=== PATIENT | female | born 1995 | race African-American/Black ===

== ENCOUNTER 2016-06-17 02:53 | Emergency (ER) | payer MEDICAID ==
[2016-06-17] MEDS ORDERED: OXYCODONE-ACETAMINOPHEN 5-325 MG TABLET PO ONE (03:29)
[2016-06-17] MEDS ORDERED: IPRATROPIUM/ALBUTEROL 0.5-2.5 MG/3 ML AMPUL NEB ONE (03:30)
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
[2016-06-17] MEDS ORDERED: PREDNISONE 20 MG TABLET PO ONE (04:54)
[2016-06-17] MEDS ORDERED: ALBUTEROL SULFATE HFA (90 MCG/PUFF) 8 GM MDI (1 MDI/ER DISP) IH ONE (05:01)
[2016-06-17 07:20] VITALS: BP 104/67
== END 2016-06-17 07:00 | disposition home or self-care (01) ==
LOC: ER 02:53
DX: S06.0X1A Concussion with loss of consciousness of 30 minutes or less, initial encounter (principal); S16.1XXA Strain of muscle, fascia and tendon at neck level, initial encounter; J40 Bronchitis, not specified as acute or chronic; R51 Headache; R05 Cough; M54.5 Low back pain; M54.2 Cervicalgia; F17.200 Nicotine dependence, unspecified, uncomplicated; X58.XXXA Exposure to other specified factors, initial encounter
CPT/HCPCS: 94640; 99284; 71010; 70450; 72125; J7512; J3490; J7620

== ENCOUNTER 2016-10-02 16:25 | Emergency (ER) | payer MEDICAID ==
--- NOTE | 2016-10-02 17:00 | ER Document Report ---
ED Medical Screen (RME) - General Chief Complaint: Vaginal Bleeding Stated Complaint: VAGINAL BLEEDING Time Seen by Provider: 10/02/16 16:55 Mode of Arrival: Ambulatory Information source: Patient TRAVEL OUTSIDE OF THE [place] IN LAST 30 DAYS: No - HPI Patient complains to provider of: vaginal bleeding and cramping Onset: Yesterday - pt. is a approx 6-7 weeks along who developed vaginal bleeding and cramping earllier today - Related Data Allergies/Adverse Reactions: peanut [Peanut] Allergy (Verified 10/02/16 16:29) Swelling of Throat seafood Allergy (Intermediate, Uncoded 10/02/16 16:29) Swelling of Throat Past Medical History - General Last Menstrual Period: 08/18/16 - Social History Chew tobacco use (# tins/day): No Frequency of alcohol use: None Drug Abuse: None Renal/ Medical History: Denies: Hx Peritoneal Dialysis Past Surgical History: Reports: Hx Gynecologic Surgery - ovarian cyst removal - Immunizations Hx Diphtheria, Pertussis, Tetanus Vaccination: Yes Physical Exam - Vital signs Vitals: Temp Pulse Resp BP Pulse Ox 98.0 F 71 16 109/66 98 10/02/16 16:33 10/02/16 16:33 10/02/16 16:33 10/02/16 16:33 10/02/16 16:33 Course - Vital Signs Vital signs: Temp Pulse Resp BP Pulse Ox 98.0 F 71 16 109/66 98 10/02/16 16:33 10/02/16 16:33 10/02/16 16:33 10/02/16 16:33 10/02/16 16:33
[2016-10-02 17:18] LABS: ABSOLUTE EOSINOPHILS # (AUTO) 0.3 10^3/uL (0.0-0.6); ABSOLUTE LYMPHOCYTES (AUTO) 0.9 10^3/uL (0.5-4.7); ABSOLUTE MONOCYTES (AUTO) 0.3 10^3/uL (0.1-1.4); ABSOLUTE NEUT (AUTO) 2.8 10^3/uL (1.7-8.2); BASOPHILS % (AUTO) 0.6 % (0-2); HEMATOCRIT 40.6 % (36.0-47.0); HEMOGLOBIN 13.2 g/dL (12.0-15.5); LYMPHOCYTES % (AUTO) 21.2 % (13-45); MEAN CORPUSCULAR HEMOGLOBIN 28.1 pg (27.0-33.4); MEAN CORPUSCULAR HGB CONC 32.5 g/dL (32.0-36.0); MEAN CORPUSCULAR VOLUME 86 fl (80-97); MONOCYTES % (AUTO) 7.6 % (3-13); RED CELL DISTRIBUTION WIDTH 13.2 % (11.5-14.0); SEGMENTED NEUTROPHILS % (AUTO) 64.6 % (42-78); WHITE BLOOD COUNT 4.4 10^3/uL (4.0-10.5)
[2016-10-02 17:37] LABS: ALANINE AMINOTRANSFERASE 23 U/L (9-52); ALBUMIN 4.4 g/dL (3.5-5.0); ALKALINE PHOSPHATASE 71 U/L (38-126); ANION GAP 10 (5-19); ASPARTATE AMINO TRANSFERASE 20 U/L (14-36); BILIRUBIN,DIRECT 0.2 mg/dL (0.0-0.4); BLOOD UREA NITROGEN 13 mg/dL (7-20); CALCIUM 9.7 mg/dL (8.4-10.2); CARBON DIOXIDE 27 mmol/L (22-30); CHLORIDE 103 mmol/L (98-107); CREATININE RESULT 1.07 mg/dL (0.52-1.25); GLUCOSE 103 mg/dL (75-110); POTASSIUM 4.3 mmol/L (3.6-5.0); SODIUM 140.3 mmol/L (137-145); TOTAL PROTEIN 7.6 g/dL (6.3-8.2)
[2016-10-02 17:39] LABS: AMORPHOUS SEDIMENT,URINE TRACE /HPF; APPEARANCE,URINE CLOUDY; BILIRUBIN,URINE NEGATIVE (NEGATIVE); GLUCOSE, URINE NEGATIVE (NEGATIVE); KETONES,URINE NEGATIVE (NEGATIVE); LEUKOCYTE ESTERASE,URINE NEGATIVE (NEGATIVE); NITRITE,URINE NEGATIVE (NEGATIVE); PROTEIN,URINE NEGATIVE (NEGATIVE); URINE SPECIFIC GRAVITY 1.024
--- NOTE | 2016-10-02 18:21 | RADIOLOGY REPORT (SQ) ---
EXAM DESCRIPTION: U/S OB TRANSVAGINAL W/O DOP COMPLETED DATE/TIME: 10/02/2016 5:51 pm REASON FOR STUDY: vaginal bleeding and cramping COMPARISON: None. TECHNIQUE: Transvaginal static and realtime grayscale images acquired of the pelvis. Additional colten cted spectral and color Doppler images recorded. All images stored on PACs. BHCG: Not available. LIMITATIONS: None. FINDINGS: UTERUS: No visualized intrauterine . There is of a complex area in the lower [place] rine segment, 4.3 x 2.3 x 1.9 cm, possibly endometrial and possibly along the endometrium. Possibly a fibroid. RIGHT ADNEXA: Normal vascular flow. No adnexal free fluid. Complicated 4.3 x 5.3 x 4.5 cm cysts. LEFT ADNEXA: Normal ovary with normal vascular flow. No adnexal free fluid. Echogenic with hypoechoic areas. 3.1 x 3.1 x 1.9 cm. Likely dermoid. FREE FLUID: None. OTHER: No other significant finding. IMPRESSION: NO VISUALIZED INTRA- OR EXTRAUTERINE . Complex area air lower uterine segment question endometrial versus along the endometrium in the myometrium. Possibly fibroid. No fluid, bu t possibly AB in progress. bHCG LEVEL NOT AVAILABLE FOR CORRELATION WITH US FINDINGS. ECTOPIC CANNOT BE EXCLUDED. FOLLOW-UP ULTRASOUND AND SERIAL BHCG LEVELS STRONGLY RECOMMENDED TO ACCURATELY ASSESS STATU S. Complicated right ovarian cyst. Possible dermoid left ovary. COMMENT: Followup of asymptomatic indeterminate ovarian cysts detected by ultrasound in PREMENOPAUS [place] patients Cyst with findings suggestive of, but not classic for, hemorrhagic cyst, endometrioma or dermoid: *6-12 week followup US; if not a resolving hemorrhagic cyst, continued US or MRI followup; if endomet rioma or dermoid still not confirmed, consider surgical consultation Note: If cyst is clinically symptomatic or otherwise concerning, other followup may be warranted. Based on recommendations of the Society for Radiologists in Ultrasound Consensus Conference Statement 2010 on management of asymptomatic ovarian and other adnexal cysts imaged at ultrasound. TECHNICAL DOCUMENTATION: JOB ID: [id number] [employer]- All Rights Reserved
[2016-10-02] MEDS ORDERED: IBUPROFEN 600 MG TABLET PO ONE (19:25)
--- NOTE | 2016-10-02 19:41 | ER Document Report ---
ED General - General Chief Complaint: Vaginal Bleeding Stated Complaint: VAGINAL BLEEDING Time Seen by Provider: 10/02/16 16:55 Mode of Arrival: Ambulatory Notes: 21-year-old female 1 at approximately 6 weeks by dates presents with crampy abdominal pain and spotting. No fever. Symptoms are constant. Symptoms been present for about 5 days. She has a known ovarian cyst and was getting that checked when she found out she was . Denies fever chills or urinary symptoms. Workup ordered at triage includes labs and ultrasound. TRAVEL OUTSIDE OF THE [place] IN LAST 30 DAYS: No - Related Data Allergies/Adverse Reactions: peanut [Peanut] Allergy (Verified 10/02/16 16:29) Swelling of Throat seafood Allergy (Intermediate, Uncoded 10/02/16 16:29) Swelling of Throat Past Medical History - General Information source: Patient Last Menstrual Period: 08/18/16 - Social History Smoking Status: Current Some Day Smoker Chew tobacco use (# tins/day): No Frequency of alcohol use: None Drug Abuse: None Family History: Reviewed & Not Pertinent Renal/ Medical History: Denies: Hx Peritoneal Dialysis Past Surgical History: Reports: Hx Gynecologic Surgery - ovarian cyst removal - Immunizations Hx Diphtheria, Pertussis, Tetanus Vaccination: Yes Review of Systems - Review of Systems Notes: REVIEW OF SYSTEMS GEN: Denies fever, chills, weight loss ENT: Denies sore throat, nasal discharge, ear pain EYES: Denies blurry vision, eye pain, discharge CV: Denies chest pain, palpitations, edema RESP: Denies cough, shortness of breath, wheezing GI: Abdominal cavity, no vaginal discharge MSK: Denies joint pain/swelling, edema, SKIN: Denies rash, skin lesions LYMPH: Denies swollen glands/lymph nodes NEURO: Denies headache, focal weakness or numbness, dizziness PSYCH: Denies depression, suicidal or homicidal ideation PHYSICAL EXAMINATION General: No acute distress, well-nourished Head: Atraumatic, normocephalic ENT: Mouth normal, oropharynx moist, no exudates or tonsillar enlargement Eyes: Conjunctiva normal, pupils equal, lids normal Neck: No JVD, supple, no guarding CVS: Normal rate, regular rhythm, no murmurs Resp: No resp distress, equal and normal breath sounds bilaterally GI: Nondistended, soft, no tenderness to palpation, no rebound or guarding Ext: No deformities, no edema, normal range of motion in upper and lower ext Back: No CVA or midline TTP Skin: No rash, warm Lymphatic: No lymphadeopathy noted Neuro: Awake, alert. Face symmetric. GCS 15. Physical Exam - Vital signs Vitals: Temp Pulse Resp BP Pulse Ox 98.0 F 71 16 109/66 98 10/02/16 16:33 10/02/16 16:33 10/02/16 16:33 10/02/16 16:33 10/02/16 16:33 Course - Re-evaluation Re-evalutation: 10/02/16 19:26 Likely first trimester patient presents with crampy lower abdominal pain and bleeding. Her ultrasound triage shows no intrauterine gestation. Her beta hCG is nearly 0 likely reflecting a miscarriage in progress. Ectopic is still on the list but much less likely. I will get an Rh type, but she will be followed up in 48 hours for repeat beta hCG. 10/02/16 21:35 Rh+. Arranged 48 hour follow-up with Dr. Urban by phone. Motrin symptoms. - Vital Signs Vital signs: Temp Pulse Resp BP Pulse Ox 97.4 F 62 14 104/71 92 10/02/16 18:21 10/02/16 18:21 10/02/16 18:21 10/02/16 18:21 10/02/16 18:21 - Laboratory Result Diagrams: 10/02/16 17:03 10/02/16 17:03 Laboratory results interpreted by me: 10/02/16 17:03 Urine Blood MODERATE H Urine Urobilinogen 4.0 H - Diagnostic Test Radiology reviewed: Image reviewed, Reports reviewed Discharge - Discharge Clinical Impression: Spontaneous Condition: Good Disposition: HOME, SELF-CARE Instructions: Miscarriage ([facility]) Referrals: JUAN BIRCH MD [ACTIVE STAFF] - 10/04/16 (48 hours for rpt labs)
[2016-10-02 21:55] VITALS: BP 101/72
== END 2016-10-02 21:55 | disposition home or self-care (01) ==
LOC: ER 16:25
DX: O03.9 Complete or unspecified spontaneous abortion without complication (principal); O34.81 Maternal care for other abnormalities of pelvic organs, first trimester; O99.331 Smoking (tobacco) complicating pregnancy, first trimester; F17.210 Nicotine dependence, cigarettes, uncomplicated; N83.201 Unspecified ovarian cyst, right side; Z91.010 Allergy to peanuts; Z91.013 Allergy to seafood; Z3A.01 Less than 8 weeks gestation of pregnancy
CPT/HCPCS: 99284; 86900; 86901; 36415; 84702; 85025; 80053; 81001; 76817; J3490

== ENCOUNTER 2016-12-02 10:37 | Emergency (ER) | payer MEDICAID ==
[2016-12-02 10:45] VITALS: BP 106/68
[2016-12-02] MEDS ORDERED: OXYCODONE-ACETAMINOPHEN 5-325 MG TABLET PO ONE (10:57)
--- NOTE | 2016-12-02 10:58 | ER Document Report ---
HPI - HPI Patient complains to provider of: Abscess Onset: Other - 3 days Onset/Duration: Persistent Quality of pain: Sharp Pain Level: 4 Context: Patient complains of abscess to the left labia for the past 3 days. Patient denies any drainage no bleeding or discharge. Patient denies any fever. Patient states she has had a similar problem in the past. Associated Symptoms: Other - Abscess to the vaginal area. denies: Fever Exacerbated by: Movement Relieved by: Denies Similar symptoms previously: Yes Recently seen / treated by doctor: No - ROS ROS below otherwise negative: Yes Systems Reviewed and Negative: Yes All other systems reviewed and negative - CONSTITUTIONAL Constitutional: DENIES: Fever, Chills - GASTROINTESTINAL Gastrointestinal: DENIES: Abdominal Pain, Nausea - REPRODUCTIVE Reproductive: DENIES: : - DERM Skin Color: Normal Notes: Abscess Past Medical History - General Information source: Patient - Social History Smoking Status: Current Every Day Smoker Frequency of alcohol use: None Drug Abuse: None Occupation: Foodservice Family History: Reviewed & Not Pertinent Renal/ Medical History: Reports: Hx Ovarian Cysts. Denies: Hx Peritoneal Dialysis Skin Medical History: Reports Hx Eczema Past Surgical History: Reports: Hx Gynecologic Surgery - ovarian cyst removal - Immunizations Hx Diphtheria, Pertussis, Tetanus Vaccination: Yes Vertical Provider Document - CONSTITUTIONAL Agree With Documented VS: Yes Exam Limitations: No Limitations General Appearance: WD/WN, No Apparent Distress - INFECTION CONTROL TRAVEL OUTSIDE OF THE [place] IN LAST 30 DAYS: No - HEENT HEENT: Atraumatic, Normocephalic - NECK Neck: Normal Inspection, Supple - RESPIRATORY Respiratory: Breath Sounds Normal, No Respiratory Distress O2 Sat by Pulse Oximetry: 99 - CARDIOVASCULAR Cardiovascular: Regular Rate, Regular Rhythm - GI/ABDOMEN Gastrointestinal: Abdomen Soft, Abdomen Non-Tender, No Organomegaly - REPRODUCTIVE Female Genitalia: Abnormal Inspection - bartholin gland abscess - BACK Back: Normal Inspection - MUSCULOSKELETAL/EXTREMETIES Musculoskeletal/Extremeties: MAEW - NEURO Level of Consciousness: Awake, Alert, Appropriate Motor/Sensory: No Motor Deficit - DERM Integumentary: Warm, Dry, Abscess - left side bartholin gland Course - Vital Signs Vital signs: Temp Pulse Resp BP Pulse Ox 98.5 F 100 18 106/68 99 12/02/16 10:44 12/02/16 10:44 12/02/16 10:44 12/02/16 10:44 12/02/16 10:44 Procedures - Incision and Drainage Left Labia Type: Simple Anesthetic type: 1% Lidocaine Blade size: 11 I&D procedure: Betadine prep applied Incision Method: Incision made by scalpel Amount/type of drainage: large amount of purulent drainage Female anatomy: 1 - incision made at area of fluctuance Discharge - Discharge Clinical Impression: Bartholin's gland abscess Condition: Stable Disposition: HOME, SELF-CARE Instructions: Abscess ([facility]), Oral Narcotic Medication ([facility]), Post Incision and Drainage, Trimethoprim-Sulfa ([facility]) Additional Instructions: Return immediately for any new or worsening symptoms Followup with your primary care provider, call tomorrow to make a followup appointment Culture is pending, will call if you need any different treatment Prescriptions: Oxycodone HCl/Acetaminophen [Percocet 5-325 mg Tablet] 1 tab PO ASDIR PRN #12 tablet PRN Reason: Sulfamethoxazole/Trimethoprim [Bactrim Ds Tablet] 1 each PO BID #20 tablet Forms: Return to Work Referrals: [facility] [Provider Group] - Follow up as needed [facility] [Provider Group] - Follow up as needed
== END 2016-12-02 11:36 | disposition home or self-care (01) ==
LOC: ER 10:37
PROC: 0U9L0ZZ Drainage of Vestibular Gland, Open Approach (ICD-10-PCS; principal; 2016-12-02)
DX: N75.1 Abscess of Bartholin's gland (principal); F17.200 Nicotine dependence, unspecified, uncomplicated
CPT/HCPCS: 87070; 87075; 87077; 87205; 99283

== ENCOUNTER 2016-12-03 06:27 | Emergency (ER) | payer OTHER, MEDICAID ==
[2016-12-03] MEDS ORDERED: NORMAL SALINE 1000 ML 1,000 ML IV ONE ×2 (06:29)
[2016-12-03 06:41] LABS: ABSOLUTE EOSINOPHILS # (AUTO) 0.1 10^3/uL (0.0-0.6); ABSOLUTE LYMPHOCYTES (AUTO) 1.7 10^3/uL (0.5-4.7); ABSOLUTE MONOCYTES (AUTO) 0.4 10^3/uL (0.1-1.4); ABSOLUTE NEUT (AUTO) 4.7 10^3/uL (1.7-8.2); BASOPHILS % (AUTO) 0.5 % (0-2); EOSINOPHILS % (AUTO) 1.7 % (0-6); HEMATOCRIT 36.8 % (36.0-47.0); HEMOGLOBIN 12.3 g/dL (12.0-15.5); HGB HCT DIFFERENCE 0.1; LYMPHOCYTES % (AUTO) 23.9 % (13-45); MEAN CORPUSCULAR HEMOGLOBIN 28.3 pg (27.0-33.4); MEAN CORPUSCULAR HGB CONC 33.4 g/dL (32.0-36.0); MEAN CORPUSCULAR VOLUME 85 fl (80-97); MONOCYTES % (AUTO) 5.9 % (3-13); RED BLOOD COUNT 4.34 10^6/uL (3.72-5.28); RED CELL DISTRIBUTION WIDTH 12.9 % (11.5-14.0)
[2016-12-03 06:56] LABS: ALANINE AMINOTRANSFERASE 59 U/L (9-52); ALBUMIN 4.1 g/dL (3.5-5.0); ALCOHOL 145 mg/dL (NONE DETECTED); ALKALINE PHOSPHATASE 71 U/L (38-126); ANION GAP 14 (5-19); ASPARTATE AMINO TRANSFERASE 77 U/L (14-36); BILIRUBIN,DIRECT 0.4 mg/dL (0.0-0.4); BILIRUBIN,TOTAL 0.9 mg/dL (0.2-1.3); BLOOD UREA NITROGEN 10 mg/dL (7-20); CALCIUM 9.1 mg/dL (8.4-10.2); CARBON DIOXIDE 23 mmol/L (22-30); CHLORIDE 107 mmol/L (98-107); CREATININE RESULT 0.95 mg/dL (0.52-1.25); GLUCOSE 113 mg/dL (75-110); LIPASE 66.2 U/L (23-300); POTASSIUM 4.1 mmol/L (3.6-5.0); SODIUM 144.4 mmol/L (137-145); TOTAL PROTEIN 7.5 g/dL (6.3-8.2)
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
--- NOTE | 2016-12-03 08:34 | EKG REPORT ---
SEVERITY:- OTHERWISE NORMAL ECG - SINUS TACHYCARDIA : Confirmed by: Mohit Zuniga MD 03-Dec-2016 08:33:46
[2016-12-03] MEDS ORDERED: ONDANSETRON HCL INJ/PF 4 MG/2 ML SDV IV ONE (08:37)
[2016-12-03] MEDS ORDERED: ACETAMINOPHEN 325 MG TABLET PO ONE (11:53)
[2016-12-03] MEDS ORDERED: ONDANSETRON ODT 4 MG TAB (6 TAB/DSPK) PO PRN (13:07)
[2016-12-03 13:08] VITALS: BP 116/74
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
== END 2016-12-03 13:18 | disposition home or self-care (01) ==
LOC: ER 06:27
DX: S02.2XXA Fracture of nasal bones, initial encounter for closed fracture (principal); F10.920 Alcohol use, unspecified with intoxication, uncomplicated; V47.6XXA Car passenger injured in collision with fixed or stationary object in traffic accident, initial encounter; Z91.010 Allergy to peanuts; Z91.013 Allergy to seafood
CPT/HCPCS: 93005; 99285; 96361; 96374; 36415; 80307; 83690; 84703; 85025; 80053; 70450; 70486; 71260; 72125; 74177; 93010; J2405; J7030

== ENCOUNTER 2016-12-04 19:20 | Emergency (ER) | payer OTHER, MEDICAID ==
[2016-12-04] MEDS ORDERED: ACETAMINOPHEN 325 MG TABLET PO ONE (20:23)
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
--- NOTE | 2016-12-04 21:03 | RADIOLOGY REPORT (SQ) ---
EXAM DESCRIPTION: ANKLE RIGHT COMPLETE COMPLETED DATE/TIME: 12/04/2016 8:21 pm REASON FOR STUDY: right ankle injury COMPARISON: None. NUMBER OF VIEWS: Three views. TECHNIQUE: AP, lateral, and oblique radiographic images acquired of the right ankle. LIMITATIONS: None. FINDINGS: MINERALIZATION: Normal. BONES: No acute fracture or dislocation. No worrisome bone lesions. JOINTS: No effusions. SOFT TISSUES: Soft tissue swelling is identified. OTHER: No other significant finding. IMPRESSION: Soft tissue swelling without evidence for fracture. TECHNICAL DOCUMENTATION: JOB ID: [id number] [employer]- All Rights Reserved
[2016-12-04 21:21] VITALS: BP 115/58
== END 2016-12-04 21:20 | disposition home or self-care (01) ==
LOC: ER 19:20
DX: M25.571 Pain in right ankle and joints of right foot (principal)
CPT/HCPCS: 99283

== ENCOUNTER 2016-12-11 10:48 | Emergency (ER) | payer MEDICAID, OTHER ==
--- NOTE | 2016-12-11 12:41 | ER Document Report ---
ED General - General Chief Complaint: Abdominal Pain Stated Complaint: ABDOMINAL PAIN Time Seen by Provider: 12/11/16 12:27 Mode of Arrival: Ambulatory Information source: Patient Notes: 21-year-old female who is been here now for times in a week presents with complaints of thick white vaginal discharge. Patient notes symptoms have been ongoing for a week denies any fevers or chills denies any previous STD history. Patient is sexually active TRAVEL OUTSIDE OF THE [place] IN LAST 30 DAYS: No - HPI Onset: Last week Onset/Duration: Persistent Quality of pain: Achy Severity: Mild Pain Level: 1 Associated symptoms: Other Exacerbated by: Denies Relieved by: Denies Similar symptoms previously: Yes Recently seen / treated by doctor: Yes - Related Data Allergies/Adverse Reactions: peanut [Peanut] Allergy (Verified 12/11/16 10:54) Swelling of Throat seafood Allergy (Intermediate, Uncoded 12/11/16 10:54) Swelling of Throat Past Medical History - Social History Smoking Status: Current Every Day Smoker Cigarette use (# per day): Yes Chew tobacco use (# tins/day): No Smoking Education Provided: No Frequency of alcohol use: Occasional Drug Abuse: None Family History: Reviewed & Not Pertinent Patient has suicidal ideation: No Renal/ Medical History: Reports: Hx Ovarian Cysts. Denies: Hx Peritoneal Dialysis Skin Medical History: Reports Hx Eczema Past Surgical History: Reports: Hx Gynecologic Surgery - ovarian cyst removal - Immunizations Hx Diphtheria, Pertussis, Tetanus Vaccination: Yes Review of Systems - Review of Systems Notes: REVIEW OF SYSTEMS: CONSTITUTIONAL : Denies fever, chills, or sweats. Denies recent illness. EENT: Denies eye, ear, throat, or mouth pain or symptoms. Denies nasal or sinus congestion or discharge. Denies throat, tongue, or mouth swelling or difficulty swallowing. CARDIOVASCULAR: Denies chest pain. Denies palpitations or racing or irregular heart beat. Denies ankle edema. RESPIRATORY: Denies cough, cold, or chest congestion. Denies shortness of breath, difficulty breathing, or wheezing. GASTROINTESTINAL: Denies abdominal pain or distention. Denies nausea, vomiting , or diarrhea. Denies blood in vomitus, stools, or per rectum. Denies black, tarry stools. Denies constipation. GENITOURINARY: Denies difficulty urinating, painful urination, burning, frequency, blood in urine, or discharge. FEMALE GENITOURINARY: Admits to thick vaginal discharge with odor MUSCULOSKELETAL: Denies back or neck pain or stiffness. Denies joint pain or swelling. SKIN: Denies rash, lesions or sores. HEMATOLOGIC : Denies easy bruising or bleeding. LYMPHATIC: Denies swollen, enlarged glands. NEUROLOGICAL: Denies confusion or altered mental status. Denies passing out or loss of consciousness. Denies dizziness or lightheadedness. Denies headache. Denies weakness or paralysis or loss of use of either side. Denies problems with gait or speech. Denies sensory loss, numbness, or tingling. Denies seizures. PSYCHIATRIC: Denies anxiety or stress. Denies depression, suicidal ideation, or homicidal ideation. ALL OTHER SYSTEMS REVIEWED AND NEGATIVE. PHYSICAL EXAMINATION: GENERAL: Well-appearing, well-nourished and in no acute distress. HEAD: Atraumatic, normocephalic. EYES: Pupils equal round and reactive to light, extraocular movements intact, conjunctiva are normal. ENT: Nares patent, oropharynx clear without exudates. Moist mucous membranes. NECK: Normal range of motion, supple without lymphadenopathy LUNGS: Breath sounds clear to auscultation bilaterally and equal. No wheezes rales or rhonchi. HEART: Regular rate and rhythm without murmurs ABDOMEN: Soft, nontender, nondistended abdomen. No guarding, no rebound. No masses appreciated. Female : Thick white discharge noted on vaginal examination no tenderness on palpation Musculoskeletal: Normal range of motion, no pitting or edema. No cyanosis. NEUROLOGICAL: Cranial nerves grossly intact. Normal speech, normal gait. Normal sensory, motor exams PSYCH: Normal mood, normal affect. SKIN: Warm, Dry, normal turgor, no rashes or lesions noted. Dictation was performed using [employer] voice recognition software Physical Exam - Vital signs Vitals: Temp Pulse Resp BP Pulse Ox 98.4 F 82 16 113/64 100 12/11/16 10:56 12/11/16 10:56 12/11/16 10:56 12/11/16 10:56 12/11/16 10:56 Course - Re-evaluation Re-evalutation: 12/11/16 13:03 Patient will be treated for gonorrhea chlamydia lab work otherwise pending 12/11/16 15:10 After performing a Medical Screening Examination, I estimate there is LOW risk for ACUTE APPENDICITIS, BOWEL OBSTRUCTION, ACUTE CHOLECYSTITIS, PERFORATED DIVERTICULITIS, INCARCERATED HERNIA, PANCREATITIS, PELVIC INFLAMMATORY DISEASE, PERFORATED ULCER, ECTOPIC , or TUBO-OVARIAN ABSCESS, thus I consider the discharge disposition reasonable. Also, there is no evidence or peritonitis , sepsis, or toxicity. I have reevaluated this patient multiple times and no significant life threatening changes are noted. The patient and I have discussed the diagnosis and risks, and we agree with discharging home with close follow-up with the understanding that symptoms and presentations can change. We also discussed returning to the Emergency Department immediately if new or worsening symptoms occur. We have discussed the symptoms which are most concerning (e.g., bloody stool, fever, changing or worsening pain, vomiting) that necessitate immediate return. - Vital Signs Vital signs: Temp Pulse Resp BP Pulse Ox 98.1 F 72 14 102/64 100 12/11/16 13:37 12/11/16 13:37 12/11/16 13:37 12/11/16 13:37 12/11/16 13:37 - Laboratory Laboratory results interpreted by me: 12/11/16 12/11/16 11:40 13:01 Urine Urobilinogen 4.0 H Ur Leukocyte Esterase MODERATE H Chlamydia DNA (PCR) DETECTED H Discharge - Discharge Clinical Impression: Vaginal discharge, Concern about STD in female without diagnosis Condition: Stable Disposition: HOME, SELF-CARE Additional Instructions: Please follow-up with the health department for further testing positive results will be called to you Referrals: HEALTH DEPT,[facility] [NO LOCAL MD] - Follow up tomorrow
[2016-12-11] MEDS ORDERED: CEFTRIAXONE INJ 250 MG VIAL IM ONE (12:56)
[2016-12-11] MEDS ORDERED: AZITHROMYCIN 250 MG TABLET PO ONE (12:56)
[2016-12-11] MEDS ORDERED: LIDOCAINE 1% INJ-PF (10 MG/ML) 30 ML SDV INFIL ONE (12:56)
[2016-12-11 13:31] LABS: APPEARANCE,URINE CLOUDY; BILIRUBIN,URINE NEGATIVE (NEGATIVE); GLUCOSE, URINE NEGATIVE (NEGATIVE); KETONES,URINE NEGATIVE (NEGATIVE); LEUKOCYTE ESTERASE,URINE MODERATE (NEGATIVE); NITRITE,URINE NEGATIVE (NEGATIVE); PROTEIN,URINE NEGATIVE (NEGATIVE)
[2016-12-11 13:38] VITALS: BP 102/64
[2016-12-11 14:43] LABS: CHLAM PCR DETECTED (NOT DETECT)
== END 2016-12-11 13:37 | disposition home or self-care (01) ==
LOC: ER 10:48
DX: A56.8 Sexually transmitted chlamydial infection of other sites (principal); J02.8 Acute pharyngitis due to other specified organisms; B97.89 Other viral agents as the cause of diseases classified elsewhere; F17.210 Nicotine dependence, cigarettes, uncomplicated; Z91.010 Allergy to peanuts; Z91.013 Allergy to seafood
CPT/HCPCS: 99284; 96372; 87210; 81025; 81001; 87491; 87591; Q0144; J0696

== ENCOUNTER 2018-05-27 11:31 | Emergency (ER) | payer MEDICAID, OTHER ==
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
[2018-05-27 13:21] LABS: ABSOLUTE EOSINOPHILS # (AUTO) 0.1 10^3/uL (0.0-0.6); ABSOLUTE LYMPHOCYTES (AUTO) 0.5 10^3/uL (0.5-4.7); ABSOLUTE MONOCYTES (AUTO) 0.4 10^3/uL (0.1-1.4); ABSOLUTE NEUT (AUTO) 4.7 10^3/uL (1.7-8.2); BASOPHILS % (AUTO) 0.2 % (0-2); EOSINOPHILS % (AUTO) 1.1 % (0-6); HEMATOCRIT 38.2 % (36.0-47.0); HEMOGLOBIN 12.7 g/dL (12.0-15.5); LYMPHOCYTES % (AUTO) 8.7 % (13-45); MEAN CORPUSCULAR HEMOGLOBIN 28.5 pg (27.0-33.4); MEAN CORPUSCULAR HGB CONC 33.2 g/dL (32.0-36.0); MEAN CORPUSCULAR VOLUME 86 fl (80-97); MONOCYTES % (AUTO) 7.6 % (3-13); PLATELET COUNT 183 10^3/uL (150-450); RED BLOOD COUNT 4.45 10^6/uL (3.72-5.28); RED CELL DISTRIBUTION WIDTH 14.5 % (11.5-14.0); SEGMENTED NEUTROPHILS % (AUTO) 82.4 % (42-78); TOTAL CELLS COUNTED % (AUTO) 100 %; WHITE BLOOD COUNT 5.8 10^3/uL (4.0-10.5)
--- NOTE | 2018-05-27 14:29 | RADIOLOGY REPORT (SQ) ---
EXAM DESCRIPTION: U/S NON OB PEL TV W/DOPPLER COMPLETED DATE/TIME: 05/27/2018 2:13 pm REASON FOR STUDY: pain h/o one month ago COMPARISON: None. TECHNIQUE: Dynamic and static grayscale images acquired of the pelvis via transvaginal approach and recorded on PACS. Additional selected color Doppler and spectral images recorded. LIMITATIONS: None. FINDINGS: UTERUS: Contour normal. No mass. ENDOMETRIAL STRIPE: There is thickening and slightly irregularity in the apex of the endometrial [place] l. CERVIX: 3.3 cm. No nabothian cysts. RIGHT OVARY AND DOPPLER: Normal size. No worrisome masses. Normal arterial vascular flow without evid ence for torsion. LEFT OVARY AND DOPPLER: Normal size. No worrisome masses. Normal arterial vascular flow without evide nce for torsion. 3.5 x 2.7 x 2.1 cm complex mass with shadowing calcifications. FREE FLUID: None noted. OTHER: No other significant finding. MEASUREMENTS: UTERUS: 8.3 x 7 x 5 cm. ENDOMETRIAL STRIPE: 16 mm. RIGHT OVARY: 2.5 x 2 x 1.8 cm. LEFT OVARY: 5.5 x 2.9 x 2.7 cm. IMPRESSION: 1. Cannot exclude retained products of conception. 2. 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 TECHNICAL DOCUMENTATION: JOB ID: [id number]- All Rights Reserved Rev-07/27 Reading location - IP/workstation name: [email or web address]
[2018-05-27 15:26] LABS: BACTERIA (WET MOUNT) 3+ BACTERIA SEEN; EPITHELIALS (WET MOUNT) 3+ EPITHELIALS SEEN; RBCS (WET MOUNT) FEW RBCS SEEN; T.VAGINALIS (WET MOUNT) NO TRICHOMONAS SEEN; WBCS (WET MOUNT) 3+ WBCS SEEN; YEAST (WET MOUNT) NO YEAST SEEN
[2018-05-27] MEDS ORDERED: CEFTRIAXONE INJ 250 MG VIAL IM ONE (15:42)
[2018-05-27] MEDS ORDERED: AZITHROMYCIN 250 MG TABLET PO ONE (15:42)
--- NOTE | 2018-05-27 15:50 | ER Document Report ---
ED General - General Chief Complaint: Vaginal Pain Stated Complaint: VAGINAL PAIN Time Seen by Provider: 05/27/18 12:28 Mode of Arrival: Ambulatory Notes: 23-year-old female with no significant past medical history presents with suprapubic abdominal pain that started this morning. Reports an elective approximately 1 month ago. She complains of vomiting, abnormal white discharge, nausea. She denies fevers or chills, she denies shortness of breath or chest pain, she denies any urinary symptoms like denies dysuria, hematuria. She is sexually active. She is not on control. She has no other complaints. TRAVEL OUTSIDE OF THE [place] IN LAST 30 DAYS: No - Related Data Allergies/Adverse Reactions: peanut [Peanut] Allergy (Verified 05/27/18 11:32) Swelling of Throat seafood Allergy (Intermediate, Uncoded 05/27/18 11:32) Swelling of Throat Past Medical History - General Information source: Patient - Social History Smoking Status: Current Every Day Smoker Frequency of alcohol use: None Drug Abuse: None Family History: Reviewed & Not Pertinent Patient has suicidal ideation: No Patient has homicidal ideation: No Renal/ Medical History: Reports: Hx Ovarian Cysts. Denies: Hx Peritoneal Dialysis Skin Medical History: Reports Hx Eczema Past Surgical History: Reports: Hx Gynecologic Surgery - ovarian cyst removal - Immunizations Hx Diphtheria, Pertussis, Tetanus Vaccination: Yes Review of Systems - Review of Systems Constitutional: See HPI EENT: See HPI Cardiovascular: See HPI Respiratory: No symptoms reported Gastrointestinal: See HPI Genitourinary: See HPI Female Genitourinary: See HPI Musculoskeletal: No symptoms reported Skin: No symptoms reported Hematologic/Lymphatic: No symptoms reported Neurological/Psychological: No symptoms reported Physical Exam - Vital signs Vitals: Temp Pulse Resp BP Pulse Ox 98.1 F 75 18 105/59 L 95 05/27/18 11:46 05/27/18 11:46 05/27/18 11:46 05/27/18 11:46 05/27/18 11:46 Course - Re-evaluation Re-evalutation: 05/27/18 15:47 Ultrasound did not show any retained products of conception. 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 Foul-smelling copious amount of white discharge with no cervical motion tenderness elicited. Results consistent with PID considering patient's recent history so I will treat her with Flagyl and doxycycline. She has been unable to provide a urine sample at this time. 05/27/18 16:48 Patient José Miguel urinalysis and is negative for UTI. Is safe and stable for discharge. - Vital Signs Vital signs: Temp Pulse Resp BP Pulse Ox 98.1 F 75 18 105/59 L 95 05/27/18 11:46 05/27/18 11:46 05/27/18 11:46 05/27/18 11:46 05/27/18 11:46 - Laboratory Result Diagrams: 05/27/18 13:10 Laboratory results interpreted by me: 05/27/18 05/27/18 05/27/18 13:10 13:10 16:15 RDW 14.5 H Seg Neutrophils % 82.4 H Lymphocytes % 8.7 L Beta HCG, Quant 22.26 H Urine Urobilinogen 4.0 H Urine Ascorbic Acid 40 H Urine HCG, Qual POSITIVE H Discharge - Discharge Clinical Impression: Pelvic inflammatory disease, Vaginal discharge Instructions: Pelvic Inflammatory Disease ([facility]) Additional Instructions: You are seen in the emergency department's afternoon for pelvic inflammatory disease. You are being placed on medication called doxycycline that you will take 1 pill 2 times per day for 2 weeks. You are also being placed on Flagyl which she will take 1 pill 2 times per day for 2 weeks. Flagyl can cause vomiting and nausea so I am also giving you Zofran that you can take as needed for nausea. You are also treated empirically for chlamydia and gonorrhea. If the results are positive the culture nurse will call you but you have been raymond ated for it successfully and you will not need to take any further action. Please take these medications until they are done. Your transvaginal ultrasound did not show any retained products of conception. This is reassuring. If your symptoms persist for the next 48 hours and they get worse please return to the emergency department. If you develop severe abdominal pain, vaginal bleeding, you pass out, please immediately return to the emergency department. Prescriptions: Doxycycline Hyclate [Vibramycin 100 mg Tablet] 100 mg PO BID #28 tablet Metronidazole [Flagyl 500 mg Tablet] 500 mg PO BID 14 Days #28 tablet
[2018-05-27] MEDS ORDERED: LIDOCAINE 1% INJ-PF (10 MG/ML) 30 ML SDV ONE (16:19)
[2018-05-27 16:30] LABS: APPEARANCE,URINE CLEAR; BILIRUBIN,URINE NEGATIVE (NEGATIVE); COLOR,URINE YELLOW; GLUCOSE, URINE NEGATIVE (NEGATIVE); KETONES,URINE NEGATIVE (NEGATIVE); LEUKOCYTE ESTERASE,URINE NEGATIVE (NEGATIVE); NITRITE,URINE NEGATIVE (NEGATIVE); PROTEIN,URINE NEGATIVE (NEGATIVE); URINE SPECIFIC GRAVITY 1.025
[2018-05-27 16:56] LABS: CHLAM PCR NOT DETECTED (NOT DETECT); GON PCR NOT DETECTED (NOT DETECT)
[2018-05-27] MEDS ORDERED: ONDANSETRON ODT 4 MG TAB (6 TAB/ER DISP) PO PRN (17:02)
[2018-05-27] MEDS ORDERED: ONDANSETRON ODT 4 MG TAB (6 TAB/ER DISP) ONE (17:02)
[2018-05-27 17:09] VITALS: BP 93/70
== END 2018-05-27 17:09 | disposition home or self-care (01) ==
LOC: ER 11:31
DX: N73.9 Female pelvic inflammatory disease, unspecified (principal); R10.2 Pelvic and perineal pain; R11.2 Nausea with vomiting, unspecified; F17.200 Nicotine dependence, unspecified, uncomplicated; Z91.010 Allergy to peanuts; Z91.013 Allergy to seafood
CPT/HCPCS: 99284; 96372; 36415; 87210; 84702; 85025; 81025; 81001; 87491; 87591; 76830; 93976; J3490; J0696